=== PATIENT | female | born 1975 | race American Indian/Alaskan Native ===

== ENCOUNTER 2016-08-07 17:20 | Emergency (ER) | payer OTHER ==
[2016-08-07 18:30] LABS: Basophils % (Auto) 0.7 % (0.0-1.8); Eosinophils % (Auto) 0.9 % (0.0-4.3); Hemoglobin 11.1 gm/dl (10.1-14.3); Mean Corpuscular HGB Conc 33 % (30-34); Platelet Count 357 K/mm3 (140-440); Red Blood Count 5.13 M/mm3 (3.65-5.03); White Blood Count 12.9 K/mm3 (4.5-11.0)
[2016-08-07 18:31] LABS: Bilirubin,Urine NEG (Negative); Blood,Urine MOD (Negative); Ketones,Urine NEG (Negative); Leukocyte Esterase,Urine NEG (Negative); Mucus,Urine FEW /HPF; Nitrite,Urine NEG (Negative)
[2016-08-07 18:43] LABS: Mean Corpuscular Hemoglobin 22 pg (28-32); Mean Corpuscular Volume 66 fl (79-97)
[2016-08-07 18:53] LABS: Alanine Aminotransferase 22 units/L (7-56); Albumin 4.1 g/dL (3.9-5); Albumin/Globulin Ratio 1.3 %; Alkaline Phosphatase 56 units/L (35-129); Anion Gap 16 mmol/L; BUN/Creatinine Ratio 23.33; Bilirubin,Total 0.4 mg/dL (0.1-1.2); Blood Urea Nitrogen 14 mg/dL (7-17); Calcium 9.1 mg/dL (8.4-10.2); Carbon Dioxide 24 mmol/L (22-30); Chloride 99.4 mmol/L (98-107); Glucose 133 mg/dL (65-100); Lipase 31 units/L (13-60); Potassium 3.7 mmol/L (3.6-5.0); Sodium 136 mmol/L (137-145); Total Protein 7.3 g/dL (6.3-8.2)
[2016-08-08 06:31] VITALS: BP 150/88
[2016-08-08] MEDS ORDERED: ROCEPHIN IM ONE (06:54)
[2016-08-08] MEDS ORDERED: ZITHROMAX PO ONE (06:54)
[2016-08-08] MEDS ORDERED: XYLOCAINE 1% MPF 5 mL INFILTRATI ONE (06:54)
[2016-08-08] MEDS ORDERED: FLAGYL PO ONE (06:54)
[2016-08-08] MEDS ORDERED: TYLENOL PO ONE (06:55)
[2016-08-08] MEDS ORDERED: DIFLUCAN PO ONE (07:00)
--- NOTE | 2016-08-08 07:28 | Emergency Department Report ---
HPI - General Chief Complaint: Abdominal Pain Time Seen by Provider: 08/08/16 06:17 - HPI HPI: The patient is a 41-year-old female who presents for evaluation of abdominal pain. The patient reports suprapubic and pelvic abdominal pain for the past 2 days, crampy in quality, mild to moderate in severity, and associated with vaginal pruritus. She has also experienced some mild headache white abnormal smelling vaginal discharge. The patient has secondary complaint of soreness of throat for the past 2-3 days, scratching and burning in quality, exacerbated with swallowing, and associated with a mild nonproductive cough, and postnasal drip. The patient denies fever, chills, night sweats, chest pain, dyspnea, hemoptysis, diarrhea, blood in the stool, dark tarry stool, dysuria, hematuria, flank pain, inability to pass flatus. ED Past Medical Hx - Past Medical History Hx Hypertension: Yes Hx Diabetes: Yes (PAST HX OF DIABETES, NO LONGER TAKES MEDS.) Hx GERD: Yes - Surgical History Additional Surgical History: C/S - Social History Smoking Status: Never Smoker Substance Use Type: None - Medications Home Medications: Home Medications Medication Instructions Recorded Confirmed Last Taken Type HYDROcodone/APAP 5-325 [[place] 1 each PO Q4HR PRN #10 tablet 01/25/15 Unknown Rx 5-325 mg TAB] metFORMIN [Glucophage] 500 mg PO BID 01/25/15 01/25/15 01/25/15 History Phenylephrine/Dm/Acetaminop/GG 20 ml PO Q4HR PRN #180 liquid 08/08/16 Unknown Rx [Mucinex Vtie-Juj-Refoghheze Lq] metroNIDAZOLE [Flagyl] 500 mg PO Q12HR #14 tab 08/08/16 Unknown Rx ED Review of Systems ROS: Stated complaint: POSS YEAST INFECTION/POSS SINUS INFECTION Other details as noted in HPI Constitutional: denies: fever ENT: reports throat or neck pain Respiratory: denies: cough, shortness of breath Cardiovascular: denies: chest pain Endocrine: denies unexplained weight loss or gain Gastrointestinal: reports abdominal pain, nausea Genitourinary: denies: dysuria Musculoskeletal: denies: leg swelling Skin: denies: rash Neurological: denies: headache Hematological/Lymphatic: denies: easy bleeding or easy bruising Psych: denies sadness or hopelessness Physical Exam - Physical Exam Vital Signs: Vital Signs 08/07/16 08/08/16 02 17:41 00:44 00:58 Temperature 98.4 F 97.8 F Pulse Rate 103 H 77 Respiratory 20 18 Rate Blood Pressure 154/95 Blood Pressure 168/79 [Left] O2 Sat by Pulse 99 100 100 Oximetry 08/08/16 06:00 Temperature 98.7 F Pulse Rate 66 Respiratory 18 Rate Blood Pressure Blood Pressure 150/88 [Left] O2 Sat by Pulse 100 Oximetry Physical Exam: General: well-nourished, well-developed, no acute distress Head: Normocephalic, atraumatic Eyes: normal sclera ENT: Mucous membranes are pink and moist, mild oropharyngeal erythema present, cobblestoning of the of the Posterior Oropharynx Present, No Tonsillar Exudates , Swelling, or Deviation, No Uvula Deviation Neck: trachea midline, neck supple, No neck stiffness, no cervical adenopathy Respiratory: Breath sounds equal bilaterally, no wheezing, rales, or rhonchi Cardio: S1 and S2 present, no murmurs, rubs, gallops, capillary refill is brisk Abdomen: Normoactive bowel sounds, soft abdomen, suprapubic tenderness to palpation present no rigidity, no guarding or rebound tenderness Musc: No pitting edema Skin: No rash Neuro: no facial drooping, normal speech Psych: Normal affect ED Course Vital Signs 08/07/16 08/08/16 08/08/16 17:41 00:44 00:58 Temperature 98.4 F 97.8 F Pulse Rate 103 H 77 Respiratory 20 18 Rate Blood Pressure 154/95 Blood Pressure 168/79 [Left] O2 Sat by Pulse 99 100 100 Oximetry 08/08/16 06:00 Temperature 98.7 F Pulse Rate 66 Respiratory 18 Rate Blood Pressure Blood Pressure 150/88 [Left] O2 Sat by Pulse 100 Oximetry ED Medical Decision Making - Lab Data Result diagrams: 08/07/16 18:20 08/07/16 18:20 - Medical Decision Making The patient was seen and examined by myself. The patient is placed on a mash filter cloth changer and continuous pulse ox. On initial evaluation, the patient was found to be in no distress. Evaluation orders are placed. The patient is given a tablet of Tylenol for her pain. Lab results were non-concerning including WBC, hemoglobin, hematocrit, electrolytes, renal function, LFTs, lipase, urinalysis, and neg preg test. The patient refuses pelvic exam but requested treatment for STDs and yeast infection. The patient is given an IM dose of Rocephin, and by mouth azithromycin, Flagyl, and Diflucan. The patient was reevaluated and reported that their symptoms were markedly improved. The patient is stable for discharge with outpatient follow-up. The patient is given follow-up and return instructions. The patient expressed understanding and agreed with the plan. The patient is discharged in stable condition. Critical care attestation.: If time is entered above; I have spent that time in minutes in the direct care of this critically ill patient, excluding procedure time. ED Disposition Clinical Impression: Vaginitis Qualifiers: Chronicity: acute Qualified Code(s): N76.0 - Acute vaginitis Pharyngitis, acute Qualifiers: Pharyngitis/tonsillitis etiology: unspecified etiology Qualified Code(s): J02.9 - Acute pharyngitis, unspecified Disposition: DISCHARGED TO HOME OR SELFCARE Is pt being admited?: No Does the pt Need Aspirin: No Condition: Stable Instructions: Vaginitis (ED), Bacterial Vaginosis (ED), Vulvovaginal Candidiasis (ED), Pharyngitis (ED) Referrals: PRIMARY CARE, [Primary Care Provider] - 3-5 Days Time of Disposition: 07:04
== END 2016-08-08 07:45 | disposition home or self-care (01) ==
LOC: ED 17:20
DX: N76.0 Acute vaginitis (principal); J02.9 Acute pharyngitis, unspecified; I10 Essential (primary) hypertension; E11.9 Type 2 diabetes mellitus without complications; K21.9 Gastro-esophageal reflux disease without esophagitis
CPT/HCPCS: 36415; 80053; 81001; 81025; 83690; 85025; 96372; 99284; J0696